=== PATIENT | male | born 1955 | race Caucasian/White ===

== ENCOUNTER 2023-02-09 17:40 | Inpatient (IN) | payer OTHER, SELFPAY ==
[2023-02-09 18:19] LABS: #Basophils 0.1 thou/uL (0.0-0.2); #Eosinphils 0.5 thou/uL (0.0-0.7); #Monocytes 1.2 thou/uL (0.11-0.59); #Neutrophils 9.7 thou/uL (1.40-6.50); %Basophils 0.6 % (0.0-1.0); %Eosinophils 3.3 % (0.0-10.0); %Lymphocytes 18.9 % (21.0-51.0); %Monocytes 8.4 % (0.0-10.0); %Neutrophils 68.2 % (42.0-75.0); Hematocrit 46.6 % (42.0-52.0); Hemoglobin 13.5 g/dL (14.0-18.0); Mean Corpuscular Hemoglobin 22.8 pg (27.0-31.0); Mean Corpuscular Volume 78.7 fl (78.0-98.0); Mean Platelet Volume 9.3 fL (7.4-10.4); Platelet Count 399 10x3/uL (130-400); RBC Distribution Width 16.9 % (11.5-14.5); Red Blood Cell (RBC) Count 5.92 mill/uL (4.70-6.10); White Blood Cell (WBC) Count 14.2 10x3/uL (4.8-10.8)
[2023-02-09 18:21] LABS: Bacteria/HPF None Seen HPF (None Seen); Bilirubin Negative (Negative); Blood, Urine Negative (Negative); CAUTI Indications for Culture Dysuria,urgency,freq; Clarity Clear (Clear); Glucose, Urine (Dipstick) 70 mg/dL (Negative); Ketone, Urine Negative (Negative); Leukocyte Negative Leu/uL (Negative); Nitrite Negative (Negative); Protein, Urine (Dipstick) Negative (Neg-Trace); RBC/HPF None Seen HPF (0-3); Specific Gravity, Urine 1.006 (1.002-1.036); Squamous Epithelial None Seen HPF (0-3); Urobilinogen Normal mg/dL (Less than 2); WBC/HPF None Seen HPF (0-3)
[2023-02-09 18:24] LABS: Urine Culture Reflex No No
[2023-02-09 18:44] LABS: ALT (SGPT) 31 U/L (8-55); AST (SGOT) 28 U/L (5-34); Albumin 4.2 g/dL (3.4-4.8); Alkaline Phosphatase 144 U/L (40-110); Anion Gap 16 mmol/L (10-20); BUN (Urea Nitrogen) 14 mg/dL (8.4-25.7); Bilirubin, Total 0.3 mg/dL (0.2-1.2); Calc. Creatinine Clearance 0 mL/min (70-130); Calcium 9.3 mg/dL (7.8-10.44); Carbon Dioxide 30 mmol/L (23-31); Chloride 96 mmol/L (98-107); Estimated GFR 95; Globulin 3.8 g/dL (2.4-3.5); Glucose 144 mg/dL (80-115); Lipase 26 U/L (8-78); Magnesium 1.9 mg/dL (1.6-2.6); Potassium 4.3 mmol/L (3.5-5.1); Sodium 138 mmol/L (136-145)
[2023-02-09 18:47] LABS: Troponin I 0.011 ng/mL (< 0.028)
[2023-02-09] MEDS ORDERED: methylPREDNISolone Sod Succ/PF 125 MG/2 ML VIAL ONE (20:42)
[2023-02-09] MEDS ORDERED: Dextrose 5% in Water 1,000 ML IV PRN (20:59)
[2023-02-09] MEDS ORDERED: Dextrose 50% Abboject 50 ML SYRINGE SLOW IVP PRN (20:59)
[2023-02-09] MEDS ORDERED: Glucagon 1 MG/ML KIT IM PRN (20:59)
[2023-02-09] MEDS ORDERED: Ondansetron PF 4 MG/2 ML Vial IVP PRN (20:59)
[2023-02-09 22:10] VITALS: BMI 38.8
[2023-02-09 22:31] LABS: Amphetamine Not Detected (NotDetected); Barbiturates Screen Not Detected (NotDetected); Benzodiazepine Screen Not Detected (NotDetected); Cocaine Metabolite Screen Not Detected (NotDetected); Methadone Not Detected (NotDetected); Methamphetamine Not Detected (NotDetected); Opiate Screen Not Detected (NotDetected); Oxycodone Screen Not Detected (NotDetected); Phencyclidine (PCP) Not Detected (NotDetected); THC/Cannabinoid Screen Not Detected (NotDetected); Tricyclic Screen Not Detected (NotDetected)
[2023-02-09] MEDS: Nicotine 21 MG PATCH TD SCH (22:34)
[2023-02-09] MEDS: Ipratropium/Albuterol 3 ML NEB NEB SCH (23:03)
[2023-02-09 23:26] LABS: Hemoglobin A1c Greater than 14.0 % (4.0-6.0)
[2023-02-09 23:27] LABS: Troponin I 0.012 ng/mL (< 0.028)
[2023-02-09] MEDS: methylPREDNISolone Sod Succ 40 MG VIAL IVP SCH (23:42)
[2023-02-09] MEDS: HumaLOG 300 UNITS/3 ML VIAL SC PRN (23:45)
[2023-02-10] MEDS: Ipratropium/Albuterol 3 ML NEB NEB SCH ×5 (02:09→18:52)
[2023-02-10 03:51] LABS: #Basophils 0.1 thou/uL (0.0-0.2); #Monocytes 0.2 thou/uL (0.11-0.59); #Neutrophils 12.3 thou/uL (1.40-6.50); %Basophils 0.4 % (0.0-1.0); %Eosinophils 0.1 % (0.0-10.0); %Lymphocytes 4.1 % (21.0-51.0); %Monocytes 1.1 % (0.0-10.0); %Neutrophils 93.8 % (42.0-75.0); Hematocrit 44.5 % (42.0-52.0); Hemoglobin 13.1 g/dL (14.0-18.0); Mean Corpuscular HGB CONC 29.4 g/dL (32.0-36.0); Mean Corpuscular Hemoglobin 22.9 pg (27.0-31.0); Mean Corpuscular Volume 77.9 fl (78.0-98.0); Mean Platelet Volume 9.3 fL (7.4-10.4); Platelet Count 354 10x3/uL (130-400); Red Blood Cell (RBC) Count 5.71 mill/uL (4.70-6.10); White Blood Cell (WBC) Count 13.1 10x3/uL (4.8-10.8)
[2023-02-10 04:18] LABS: Anion Gap 14 mmol/L (10-20); BUN (Urea Nitrogen) 17 mg/dL (8.4-25.7); Calc. Creatinine Clearance 131 mL/min (70-130); Carbon Dioxide 29 mmol/L (23-31); Chloride 94 mmol/L (98-107); Estimated GFR 95; Glucose 295 mg/dL (80-115); Sodium 133 mmol/L (136-145); Troponin I 0.011 ng/mL (< 0.028)
[2023-02-10] MEDS: methylPREDNISolone Sod Succ 40 MG VIAL IVP SCH ×3 (06:12→20:01)
[2023-02-10] MEDS: Furosemide 40 MG/4 ML VIAL SLOW IVP SCH ×2 (06:12→13:00)
[2023-02-10] MEDS: HumaLOG 300 UNITS/3 ML VIAL SC PRN ×2 (06:17→12:48)
[2023-02-10] MEDS ORDERED: Insulin Glargine 30 UNITS/0.3 ML VIAL SC SCH ×3 (09:00→21:00)
[2023-02-10] MEDS: Acetaminophen 325 MG TAB PO PRN (12:56)
[2023-02-10 13:33] LABS: Glucose 614 mg/dL (80-115)
[2023-02-10] MEDS ORDERED: Melatonin 3 MG TAB PO PRN (13:53)
[2023-02-10] MEDS ORDERED: HumaLOG 300 UNITS/3 ML VIAL SC SCH (15:45)
[2023-02-10] MEDS: Nicotine 21 MG PATCH TD SCH (20:01)
[2023-02-10] MEDS: Mirtazapine 15 MG TAB PO SCH (20:01)
[2023-02-10] MEDS ORDERED: Non-Formulary Item 1 EACH (Mirtazapine [Mirtazapine] 15 MG Tab) PO SCH (21:00)
[2023-02-11 04:18] LABS: #Monocytes 0.8 thou/uL (0.11-0.59); #Neutrophils 14.2 thou/uL (1.40-6.50); %Basophils 0.1 % (0.0-1.0); %Lymphocytes 4.8 % (21.0-51.0); %Monocytes 4.8 % (0.0-10.0); %Neutrophils 89.8 % (42.0-75.0); Hematocrit 40.4 % (42.0-52.0); Hemoglobin 11.8 g/dL (14.0-18.0); Mean Corpuscular HGB CONC 29.2 g/dL (32.0-36.0); Mean Corpuscular Hemoglobin 22.4 pg (27.0-31.0); Mean Corpuscular Volume 76.8 fl (78.0-98.0); Mean Platelet Volume 9.5 fL (7.4-10.4); Platelet Count 389 10x3/uL (130-400); RBC Distribution Width 16.6 % (11.5-14.5); Red Blood Cell (RBC) Count 5.26 mill/uL (4.70-6.10); White Blood Cell (WBC) Count 15.9 10x3/uL (4.8-10.8)
[2023-02-11] MEDS: methylPREDNISolone Sod Succ 40 MG VIAL IVP SCH ×2 (04:52→19:54)
[2023-02-11 06:00] LABS: Anion Gap 18 mmol/L (10-20); BUN (Urea Nitrogen) 27 mg/dL (8.4-25.7); Calc. Creatinine Clearance 119 mL/min (70-130); Calcium 8.7 mg/dL (7.8-10.44); Carbon Dioxide 26 mmol/L (23-31); Chloride 93 mmol/L (98-107); Estimated GFR 91; Magnesium 1.9 mg/dL (1.6-2.6); Potassium 4.5 mmol/L (3.5-5.1); Sodium 132 mmol/L (136-145)
[2023-02-11 06:11] LABS: Glucose 415 mg/dL (80-115)
[2023-02-11] MEDS: HumaLOG 300 UNITS/3 ML VIAL SC PRN (06:21)
[2023-02-11] MEDS: Ipratropium/Albuterol 3 ML NEB NEB SCH ×3 (07:07→18:43)
[2023-02-11] MEDS: Furosemide 40 MG/4 ML VIAL SLOW IVP SCH (08:53)
[2023-02-11] MEDS ORDERED: Insulin Glargine 30 UNITS/0.3 ML VIAL SC SCH (09:00)
[2023-02-11] MEDS ORDERED: Gabapentin 300 MG CAP PO SCH (09:30)
[2023-02-11] MEDS: Acetaminophen 325 MG TAB PO PRN ×2 (09:57→13:41)
[2023-02-11] MEDS ORDERED: HumaLOG 300 UNITS/3 ML VIAL SC SCH (13:30)
[2023-02-11] MEDS: Insulin Regular 300 UNITS/3 ML VIAL SC PRN (17:42)
[2023-02-11] MEDS: Melatonin 3 MG TAB PO PRN (19:52)
[2023-02-11] MEDS: Gabapentin 300 MG CAP PO SCH (19:53)
[2023-02-11] MEDS: Mirtazapine 15 MG TAB PO SCH (19:54)
[2023-02-11] MEDS: Insulin Glargine 30 UNITS/0.3 ML VIAL SC SCH (19:54)
[2023-02-11] MEDS: Nicotine 21 MG PATCH TD SCH (19:55)
[2023-02-12] MEDS: Ipratropium/Albuterol 3 ML NEB NEB SCH ×3 (07:11→18:45)
[2023-02-12 07:50] LABS: Anion Gap 12 mmol/L (10-20); BUN (Urea Nitrogen) 26 mg/dL (8.4-25.7); Calc. Creatinine Clearance 116 mL/min (70-130); Calcium 8.8 mg/dL (7.8-10.44); Carbon Dioxide 33 mmol/L (23-31); Chloride 96 mmol/L (98-107); Estimated GFR 88; Glucose 338 mg/dL (80-115); Potassium 4.5 mmol/L (3.5-5.1); Sodium 136 mmol/L (136-145)
[2023-02-12] MEDS: Furosemide 40 MG/4 ML VIAL SLOW IVP SCH (08:39)
[2023-02-12] MEDS: Insulin Glargine 30 UNITS/0.3 ML VIAL SC SCH ×2 (08:39→20:48)
[2023-02-12] MEDS: Gabapentin 300 MG CAP PO SCH ×2 (08:40→20:47)
[2023-02-12] MEDS: methylPREDNISolone Sod Succ 40 MG VIAL IVP SCH ×2 (08:40→20:48)
[2023-02-12] MEDS: Acetaminophen 325 MG TAB PO PRN ×2 (08:45→12:48)
[2023-02-12] MEDS ORDERED: hydrALAZINE 20 MG/ML VIAL SLOW IVP PRN (10:17)
[2023-02-12] MEDS ORDERED: Losartan 25 MG TAB PO SCH (10:30)
[2023-02-12] MEDS: Insulin Regular 300 UNITS/3 ML VIAL SC PRN ×2 (12:43→17:06)
[2023-02-12] MEDS: Nicotine 21 MG PATCH TD SCH (20:48)
[2023-02-12] MEDS: Mirtazapine 15 MG TAB PO SCH (20:48)
[2023-02-12] MEDS: Melatonin 3 MG TAB PO PRN (20:54)
[2023-02-13 05:24] LABS: Anion Gap 10 mmol/L (10-20); BUN (Urea Nitrogen) 24 mg/dL (8.4-25.7); Calc. Creatinine Clearance 135 mL/min (70-130); Calcium 8.7 mg/dL (7.8-10.44); Carbon Dioxide 30 mmol/L (23-31); Chloride 98 mmol/L (98-107); Estimated GFR 96; Sodium 133 mmol/L (136-145)
[2023-02-13 05:26] LABS: Glucose 404 mg/dL (80-115)
[2023-02-13] MEDS: Ipratropium/Albuterol 3 ML NEB NEB SCH ×3 (07:40→18:45)
[2023-02-13] MEDS ORDERED: predniSONE 20 MG TAB PO SCH (08:00)
[2023-02-13] MEDS ORDERED: Losartan 25 MG TAB PO SCH (09:00)
[2023-02-13] MEDS: Gabapentin 300 MG CAP PO SCH ×2 (09:07→20:54)
[2023-02-13] MEDS: Insulin Glargine 30 UNITS/0.3 ML VIAL SC SCH ×2 (09:08→21:07)
[2023-02-13] MEDS: Furosemide 40 MG TAB PO SCH (09:09)
[2023-02-13] MEDS: Acetaminophen 325 MG TAB PO PRN ×2 (15:41→21:05)
[2023-02-13] MEDS ORDERED: HumaLOG 300 UNITS/3 ML VIAL SC SCH (16:43)
[2023-02-13] MEDS: Mirtazapine 15 MG TAB PO SCH (20:53)
[2023-02-13] MEDS: Losartan 25 MG TAB PO SCH (20:53)
[2023-02-13] MEDS: Nicotine 21 MG PATCH TD SCH (20:54)
[2023-02-13] MEDS: Insulin Regular 300 UNITS/3 ML VIAL SC PRN (20:54)
[2023-02-13] MEDS: HumaLOG 300 UNITS/3 ML VIAL SC PRN (20:56)
[2023-02-13] MEDS: Melatonin 3 MG TAB PO PRN (21:06)
[2023-02-14 05:03] LABS: Anion Gap 13 mmol/L (10-20); BUN (Urea Nitrogen) 19 mg/dL (8.4-25.7); Calc. Creatinine Clearance 144 mL/min (70-130); Calcium 8.8 mg/dL (7.8-10.44); Carbon Dioxide 29 mmol/L (23-31); Chloride 97 mmol/L (98-107); Estimated GFR 98; Glucose 150 mg/dL (80-115); Potassium 3.8 mmol/L (3.5-5.1); Sodium 135 mmol/L (136-145)
[2023-02-14] MEDS: Ipratropium/Albuterol 3 ML NEB NEB SCH ×3 (07:22→13:38)
[2023-02-14] MEDS ORDERED: predniSONE 20 MG TAB PO SCH (08:00)
[2023-02-14] MEDS: Acetaminophen 325 MG TAB PO PRN ×2 (08:41→13:34)
[2023-02-14] MEDS: Furosemide 40 MG TAB PO SCH (08:41)
[2023-02-14] MEDS: Losartan 25 MG TAB PO SCH (08:42)
[2023-02-14] MEDS: Gabapentin 300 MG CAP PO SCH (08:42)
[2023-02-14] MEDS: Insulin Glargine 30 UNITS/0.3 ML VIAL SC SCH (08:43)
[2023-02-14 12:15] VITALS: BP 163/77; TEMP 98
== END 2023-02-14 14:59 | disposition home or self-care (01) | DRG 291 ==
LOC: ERS 17:40 → 2SW 20:26
PROVIDERS: ADMIT Student in an Organized Health Care Education/Training Program; ATTEND Family Medicine
DX: I11.0 Hypertensive heart disease with heart failure (principal); I50.33 Acute on chronic diastolic (congestive) heart failure; J96.01 Acute respiratory failure with hypoxia; J44.1 Chronic obstructive pulmonary disease with (acute) exacerbation; E11.9 Type 2 diabetes mellitus without complications; E66.01 Morbid (severe) obesity due to excess calories; F17.210 Nicotine dependence, cigarettes, uncomplicated; Z66 Do not resuscitate; Z68.38 Body mass index [BMI] 38.0-38.9, adult
CPT/HCPCS: 36415; 36416; 71045; 78472; 80048; 80053; 80306; 81001; 83036; 83690; 83735; 83880; 84484; 85025; 93005; 93306; 94640; 96374; 97139; A9560; J0360; J1650; J1815; J1940; J2920; J2930; J7512; J7620

== ENCOUNTER 2023-03-10 12:41 | Inpatient (IN) | payer OTHER ==
[2023-03-10 19:12] LABS: Actual Bicarbonate (HCO3a) 35.6 mEq/L (22-28); Base Excess (BEa) 6.6 mEq/L (-2.0 to +3.0); Calcium, Ionized (arterial) 1.15 mmol/L (1.12-1.30); Hematocrit-ABG 35 % (42.0-52.0); O2 Tension (PaO2), arterial 70.9 mmHg (> 80.0); Potassium - ABG Lab 4.06 mmol/L (3.70-5.30); pH, Arterial 7.284 (7.35-7.45)
[2023-03-10] MEDS ORDERED: Ipratropium/Albuterol 3 ML NEB NEB PRN (19:15)
[2023-03-10] MEDS ORDERED: Acetaminophen 325 MG TAB PO PRN (19:16)
[2023-03-10] MEDS ORDERED: Ipratropium/Albuterol 3 ML NEB ONE (19:16)
[2023-03-10] MEDS ORDERED: Ondansetron PF 4 MG/2 ML Vial IVP PRN (19:16)
[2023-03-10] MEDS ORDERED: Acetaminophen 650 MG Suppository PR PRN (19:16)
[2023-03-10] MEDS ORDERED: Ondansetron ODT 4 MG TAB PO PRN (19:16)
[2023-03-10] MEDS ORDERED: Dextrose 5% in Water 1,000 ML IV PRN (19:21)
[2023-03-10] MEDS ORDERED: Dextrose 50% Abboject 50 ML SYRINGE SLOW IVP PRN (19:21)
[2023-03-10] MEDS ORDERED: Glucagon 1 MG/ML KIT IM PRN (19:21)
[2023-03-10 19:22] LABS: CO2 Tension 76.8 mmHg (35.0-45.0); Puncture Site RRA
[2023-03-10] MEDS ORDERED: Electrolyte Replacement Protocol FS SCH (19:45)
[2023-03-10 20:09] LABS: #Monocytes 0.2 thou/uL (0.11-0.59); #Neutrophils 12.4 thou/uL (1.40-6.50); %Basophils 0.2 % (0.0-1.0); %Lymphocytes 4.6 % (21.0-51.0); %Monocytes 1.4 % (0.0-10.0); %Neutrophils 92.5 % (42.0-75.0); Hematocrit 39.5 % (42.0-52.0); Hemoglobin 11.3 g/dL (14.0-18.0); Mean Corpuscular HGB CONC 28.6 g/dL (32.0-36.0); Mean Corpuscular Hemoglobin 23.3 pg (27.0-31.0); Mean Corpuscular Volume 81.3 fl (78.0-98.0); Mean Platelet Volume 9.2 fL (7.4-10.4); Platelet Count 310 10x3/uL (130-400); RBC Distribution Width 20.1 % (11.5-14.5); Red Blood Cell (RBC) Count 4.86 mill/uL (4.70-6.10); White Blood Cell (WBC) Count 13.4 10x3/uL (4.8-10.8)
[2023-03-10 20:32] LABS: Anion Gap 16 mmol/L (10-20); BUN (Urea Nitrogen) 21 mg/dL (8.4-25.7); Calc. Creatinine Clearance 0 mL/min (70-130); Calcium 8.7 mg/dL (7.8-10.44); Carbon Dioxide 32 mmol/L (23-31); Chloride 94 mmol/L (98-107); Estimated GFR 98; Glucose 159 mg/dL (80-115); Potassium 4.2 mmol/L (3.5-5.1); Sodium 138 mmol/L (136-145)
[2023-03-10 20:33] LABS: Magnesium 1.8 mg/dL (1.6-2.6)
[2023-03-10 20:43] LABS: Troponin I 0.021 ng/mL (< 0.028)
[2023-03-10] MEDS: Ipratropium/Albuterol 3 ML NEB NEB SCH (21:56)
[2023-03-10] MEDS ORDERED: Magnesium 2 GM/50 ML(in water) 2 GM in Premix 1 BAG IVPB SCH (22:00)
[2023-03-10 22:45] LABS: Actual Bicarbonate (HCO3a) 34.4 mEq/L (22-28); Base Excess (BEa) 6.2 mEq/L (-2.0 to +3.0); Calcium, Ionized (arterial) 1.16 mmol/L (1.12-1.30); Carboxyhemoglobin (COHb) 3.3 gm% (0.0-3.0); Hematocrit-ABG 34 % (42.0-52.0); Hemoglobin (Hb) 11.6 g/dL (14.0-18.0); O2 Tension (PaO2), arterial 75.9 mmHg (> 80.0); Potassium - ABG Lab 4.36 mmol/L (3.70-5.30); pH, Arterial 7.308 (7.35-7.45)
[2023-03-10 22:46] LABS: CO2 Tension 70.2 mmHg (35.0-45.0); Puncture Site LRA
[2023-03-11] MEDS: Ipratropium/Albuterol 3 ML NEB NEB SCH ×7 (02:02→22:57)
[2023-03-11 03:24] LABS: #Monocytes 0.8 thou/uL (0.11-0.59); #Neutrophils 10.2 thou/uL (1.40-6.50); %Basophils 0.2 % (0.0-1.0); %Lymphocytes 9.8 % (21.0-51.0); %Monocytes 6.6 % (0.0-10.0); %Neutrophils 82.4 % (42.0-75.0); Hematocrit 37.2 % (42.0-52.0); Hemoglobin 10.7 g/dL (14.0-18.0); Mean Corpuscular HGB CONC 28.8 g/dL (32.0-36.0); Mean Corpuscular Hemoglobin 23.3 pg (27.0-31.0); Mean Corpuscular Volume 80.9 fl (78.0-98.0); Mean Platelet Volume 9.7 fL (7.4-10.4); Platelet Count 309 10x3/uL (130-400); White Blood Cell (WBC) Count 12.4 10x3/uL (4.8-10.8)
[2023-03-11 03:50] LABS: Anion Gap 12 mmol/L (10-20); BUN (Urea Nitrogen) 24 mg/dL (8.4-25.7); Calc. Creatinine Clearance 160 mL/min (70-130); Calcium 8.2 mg/dL (7.8-10.44); Carbon Dioxide 35 mmol/L (23-31); Chloride 94 mmol/L (98-107); Estimated GFR 100; Glucose 114 mg/dL (80-115); Potassium 4.2 mmol/L (3.5-5.1); Sodium 137 mmol/L (136-145)
[2023-03-11] MEDS ORDERED: FLU VACC QS2023(65UP)/MF59C/PF 60 MCG/0.5 ML SYRINGE IM ONE (09:00)
[2023-03-11] MEDS ORDERED: methylPREDNISolone Sod Succ 40 MG VIAL IVP SCH (09:00)
[2023-03-11] MEDS: cefTRIAXone\\ROCEPHIN 1 GM in Sodium Chloride 0.9% 100 ML IVPB SCH (09:26)
[2023-03-11] MEDS: Furosemide 40 MG (4 mL) VIAL SLOW IVP SCH (09:27)
[2023-03-11] MEDS: Enoxaparin 40 MG (0.4 mL) SYRINGE SC SCH (09:27)
[2023-03-11] MEDS: Famotidine/PF 20 mg/2ml Vial SLOW IVP SCH ×2 (09:27→20:29)
[2023-03-11] MEDS ORDERED: Dexmedetomidine In 0.9 % NaCl 100 ML IVPB SCH (10:45)
[2023-03-11 11:26] VITALS: BMI 40.1
[2023-03-11] MEDS: Dexmedetomidine 400 MCG, Admixture Fee 1 EACH in Sodium Chloride 0.9% 96 ML IVPB SCH ×2 (14:24→20:31)
[2023-03-11] MEDS: methylPREDNISolone Sod Succ 40 MG VIAL IVP SCH ×2 (14:25→20:29)
[2023-03-11] MEDS ORDERED: QUEtiapine 25 MG TAB PO SCH (21:00)
[2023-03-12] MEDS: Dexmedetomidine 400 MCG, Admixture Fee 1 EACH in Sodium Chloride 0.9% 96 ML IVPB SCH ×5 (00:59→19:58)
[2023-03-12] MEDS: Ipratropium/Albuterol 3 ML NEB NEB SCH ×8 (01:13→22:20)
[2023-03-12] MEDS: methylPREDNISolone Sod Succ 40 MG VIAL IVP SCH ×4 (02:07→21:59)
[2023-03-12] MEDS ORDERED: Haloperidol Lactate 5 MG/ML VIAL SLOW IVP SCH (02:15)
[2023-03-12 08:02] LABS: #Monocytes 0.4 thou/uL (0.11-0.59); #Neutrophils 8.8 thou/uL (1.40-6.50); %Basophils 0.1 % (0.0-1.0); %Lymphocytes 8.3 % (21.0-51.0); %Monocytes 3.7 % (0.0-10.0); %Neutrophils 87.4 % (42.0-75.0); Hematocrit 40.1 % (42.0-52.0); Hemoglobin 11.5 g/dL (14.0-18.0); Mean Corpuscular HGB CONC 28.7 g/dL (32.0-36.0); Mean Corpuscular Hemoglobin 22.9 pg (27.0-31.0); Mean Corpuscular Volume 79.9 fl (78.0-98.0); Mean Platelet Volume 9.7 fL (7.4-10.4); Platelet Count 298 10x3/uL (130-400); Red Blood Cell (RBC) Count 5.02 mill/uL (4.70-6.10); White Blood Cell (WBC) Count 10.1 10x3/uL (4.8-10.8)
[2023-03-12] MEDS: Furosemide 40 MG (4 mL) VIAL SLOW IVP SCH (09:25)
[2023-03-12] MEDS: Famotidine/PF 20 mg/2ml Vial SLOW IVP SCH ×2 (09:25→21:58)
[2023-03-12] MEDS: Enoxaparin 40 MG (0.4 mL) SYRINGE SC SCH (09:25)
[2023-03-12] MEDS: cefTRIAXone\\ROCEPHIN 1 GM in Sodium Chloride 0.9% 100 ML IVPB SCH (09:26)
[2023-03-12 10:08] LABS: Anion Gap 13 mmol/L (10-20); BUN (Urea Nitrogen) 27 mg/dL (8.4-25.7); Calc. Creatinine Clearance 141 mL/min (70-130); Calcium 8.2 mg/dL (7.8-10.44); Carbon Dioxide 33 mmol/L (23-31); Chloride 93 mmol/L (98-107); Estimated GFR 96; Glucose 190 mg/dL (80-115); Potassium 4.7 mmol/L (3.5-5.1); Sodium 134 mmol/L (136-145)
[2023-03-12] MEDS ORDERED: Insulin Regular 300 UNITS/3 ML VIAL SC PRN ×2 (21:12)
[2023-03-12] MEDS ORDERED: Dextrose 50% Abboject 50 ML SYRINGE SLOW IVP PRN (21:12)
[2023-03-13] MEDS: Ipratropium/Albuterol 3 ML NEB NEB SCH ×4 (01:22→10:50)
[2023-03-13] MEDS: Dexmedetomidine 400 MCG, Admixture Fee 1 EACH in Sodium Chloride 0.9% 96 ML IVPB SCH ×2 (01:48→05:07)
[2023-03-13 06:55] VITALS: TEMP 98.6
[2023-03-13] MEDS ORDERED: Furosemide 40 MG TAB PO SCH (07:30)
[2023-03-13 07:35] LABS: #Monocytes 0.6 thou/uL (0.11-0.59); #Neutrophils 6.6 thou/uL (1.40-6.50); %Basophils 0.1 % (0.0-1.0); %Lymphocytes 7.7 % (21.0-51.0); %Monocytes 7.5 % (0.0-10.0); %Neutrophils 84.1 % (42.0-75.0); Mean Corpuscular HGB CONC 28.2 g/dL (32.0-36.0); Mean Corpuscular Hemoglobin 22.9 pg (27.0-31.0); Mean Corpuscular Volume 81.3 fl (78.0-98.0); Mean Platelet Volume 11.4 fL (7.4-10.4); White Blood Cell (WBC) Count 7.8 10x3/uL (4.8-10.8)
[2023-03-13 08:05] LABS: Anion Gap 12 mmol/L (10-20); BUN (Urea Nitrogen) 26 mg/dL (8.4-25.7); Calc. Creatinine Clearance 145 mL/min (70-130); Calcium 8.2 mg/dL (7.8-10.44); Carbon Dioxide 30 mmol/L (23-31); Chloride 96 mmol/L (98-107); Estimated GFR 97; Glucose 210 mg/dL (80-115); Potassium 4.4 mmol/L (3.5-5.1); Sodium 134 mmol/L (136-145)
[2023-03-13 08:10] LABS: Platelet Count 146 10x3/uL (130-400)
[2023-03-13 08:18] LABS: Hemoglobin A1c 12.5 % (4.0-6.0)
[2023-03-13 09:28] LABS: Anisocytosis SLIGHT = 6-15 cells (100X) (0-5/hpf)
[2023-03-13 09:29] LABS: Ovalocytes SLIGHT = 2-5 cells (100X) (0-1/hpf); Platelet Adequacy Comment Appears Adequate; Poikilocytosis SLIGHT = 6-15 cells (100X) (0-5/hpf)
[2023-03-13] MEDS: cefTRIAXone\\ROCEPHIN 1 GM in Sodium Chloride 0.9% 100 ML IVPB SCH (09:42)
[2023-03-13] MEDS: Enoxaparin 40 MG (0.4 mL) SYRINGE SC SCH (09:42)
[2023-03-13] MEDS: Famotidine/PF 20 mg/2ml Vial SLOW IVP SCH (09:43)
[2023-03-13] MEDS: methylPREDNISolone Sod Succ 40 MG VIAL IVP SCH (09:43)
[2023-03-13] MEDS ORDERED: Ipratropium/Albuterol 3 ML NEB NEB SCH (13:00)
== END 2023-03-13 13:53 | disposition home or self-care (01) | DRG 291 ==
LOC: 2NO 18:55 → OBSVTOIN 19:16 → IMCU/EMU 20:08
PROVIDERS: ADMIT Hospitalist; ATTEND Family Medicine
PROC: 5A09357 Assistance with Respiratory Ventilation, Less than 24 Consecutive Hours, Continuous Positive Airway Pressure (ICD-10-PCS; principal; 2023-03-10)
PROC: 4A133R1 Monitoring of Arterial Saturation, Peripheral, Percutaneous Approach (ICD-10-PCS; 2023-03-10)
DX: I11.0 Hypertensive heart disease with heart failure (principal); I50.33 Acute on chronic diastolic (congestive) heart failure; J96.21 Acute and chronic respiratory failure with hypoxia; J96.22 Acute and chronic respiratory failure with hypercapnia; J44.1 Chronic obstructive pulmonary disease with (acute) exacerbation; G93.40 Encephalopathy, unspecified; Z68.41 Body mass index [BMI] 40.0-44.9, adult; I24.89 Other forms of acute ischemic heart disease; E66.01 Morbid (severe) obesity due to excess calories; E83.42 Hypomagnesemia; E11.9 Type 2 diabetes mellitus without complications; Z88.5 Allergy status to narcotic agent; F17.210 Nicotine dependence, cigarettes, uncomplicated; Z79.4 Long term (current) use of insulin; Z79.899 Other long term (current) drug therapy; Z79.82 Long term (current) use of aspirin; Z98.890 Other specified postprocedural states; Z91.148 Patient's other noncompliance with medication regimen for other reason
CPT/HCPCS: 36415; 36416; 36600; 71045; 80048; 82805; 83036; 83735; 83880; 85025; 94640; 94660; J0696; J1630; J1650; J1815; J1940; J2920; J3475; J3490; J7620; S0028